=== PATIENT | female | born 2000 | race Caucasian/White ===

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

== ENCOUNTER 2021-03-09 17:52 | Emergency (ER) | payer MEDICAID ==
[~2021-03-09] VITALS: Ht 154.9 cm; Wt 68.0 kg
[~2021-03-09 17:52] MED LIST changes: +ONDA4TAB12 PO
[2021-03-09] MEDS ORDERED: PROCHLORPERAZINE 10 MG/2 ML VIAL. IV ONE (18:30)
[2021-03-09] MEDS ORDERED: KETOROLAC 15 MG/ML VIAL. IVP ONE (18:30)
[2021-03-09] MEDS ORDERED: DEXAMETHASONE 4 MG TABLET PO ONE (18:30)
[2021-03-09] MEDS ORDERED: ONDANSETRON PF 4 MG/2 ML VIAL. IVP ONE (18:30)
[2021-03-09] MEDS ORDERED: ACETAMINOPHEN 500 MG TABLET PO ONE (18:30)
[2021-03-09] MEDS ORDERED: diphenhydrAMINE 50 MG/ML VIAL IVP ONE (18:30)
[2021-03-09] MEDS ORDERED: IV RINGERS SOLUTION,LACTATED 1,000 ML IV ONE (18:30)
--- NOTE | 2021-03-09 18:38 | PHYS DOC ---
Past History Past Medical History: Anxiety, Depression, Other Additional Past Medical Histor: claustrophobia, seasonal allergies Past Surgical History: Other Additional Past Surgical Histo: lt knee--removed some "bad" tissue Smoking: Cigarettes Alcohol Use: Rarely Drug Use: None Adult General Chief Complaint Chief Complaint: HEADACHE HPI HPI Patient is a 20-year-old female with a past medical history significant for migraines, anxiety and depression who presents with a chief complaint of migraine. States over the past couple of days she has had a whole head, dull and aching migraine, 7 out of 10 with associated photophobia and nausea but no v omiting. States she gets several migraines a month and can usually handle it with ibuprofen and Excedrin. States she took these yesterday with only minimal response. Denies any recent travel, traumas, fevers, illnesses, known ill contacts, chest pain, shortness of breath, abdominal pain, dysuria, hematuria or blood in the stool. Denies any numbness/weakness/tingling. Denies any trouble ambulating. Review of Systems Review of Systems Review of systems otherwise unremarkable except noted in HPI Current Medications Current Medications Current Medications Medications (Trade) Dose Ordered Sig/Kirill Start Time Stop Time Status Last Admin Dose Admin Acetaminophen (Tylenol) 1,000 mg 1X ONCE 03/09/21 18:30 03/09/21 18:31 DC Dexamethasone (Decadron) 4 mg 1X ONCE 03/09/21 18:30 03/09/21 18:31 DC Diphenhydramine HCl (Benadryl) 25 mg 1X ONCE 03/09/21 18:30 03/09/21 18:31 DC Ketorolac Tromethamine (Toradol 15mg Vial) 15 mg 1X ONCE 03/09/21 18:30 03/09/21 18:31 DC Lactated Ringer's 1,000 ml @ 1,000 mls/hr 1X ONCE 03/09/21 18:30 03/09/21 19:29 03/09/21 18:27 1,000 MLS/HR Ondansetron HCl (Zofran) 4 mg 1X ONCE 03/09/21 18:30 03/09/21 18:31 DC Prochlorperazine Edisylate (Compazine) 10 mg 1X ONCE 03/09/21 18:30 03/09/21 18:31 DC Allergies Allergies Allergies Coded Allergies Type Severity Reaction Last Updated Verified Penicillins Allergy Unknown 05/28/20 Yes Physical Exam Physical Exam Constitutional: Well developed, well nourished, no acute distress, non-toxic appearance. [] HENT: Normocephalic, atraumatic, bilateral external ears normal, oropharynx moist, no oral exudates, nose normal. [] Eyes: PERRLA, EOMI, conjunctiva normal, no discharge. [] Neck: Normal range of motion, no tenderness, supple, no stridor. [] Cardiovascular:Heart rate regular rhythm, no murmur [] Lungs & Thorax: Bilateral breath sounds clear to auscultation [] Abdomen: soft, no tenderness, no masses, no pulsatile masses. [] Skin: Warm, dry, no erythema, no rash. [] Extremities: No tenderness, , ROM intact, Neurologic: Alert and oriented X 3, normal motor function, normal sensory function, cranial nerves intact, able to ambulate, no focal deficits noted. [] Psychologic: Affect normal, judgement normal, mood normal. [] Current Patient Data Vital Signs Vital Signs Date Time Temp Pulse Resp B/P (MAP) Pulse Ox O2 Delivery O2 Flow Rate FiO2 03/09/21 17:52 99.0 115 20 107/66 (80) 98 Room Air EKG EKG [] Radiology/Procedures Radiology/Procedures [] Heart Score C/O Chest Pain: No Risk Factors: Risk Factors: DM, Current or recent (<one month) smoker, HTN, HLP, family history of CAD, obesity. Risk Scores: Risk Factors: DM, Current or recent (<one month) smoker, HTN, HLP, family history of CAD, obesity. Course & Med Decision Making Course & Med Decision Making Patient is a 20-year-old female who presents to the emergency department for chief complaint of migraine Vital signs notable for tachycardia. Physical exam noted above. Patient given fluid and migraine cocktail. Patient stated that she is not , and does not need to take a test she would just like some medicine to get the feeling better. Advised that given doses of ibuprofen can have an adverse effect on if . States she takes ibuprofen all the time. On reassessment after migraine cocktail, patient was asleep. Let sleep for another 30 minutes or so. On further reassessment, patient woke up easily, and stated that her headache was resolved. States she felt better and was ready to be discharged home. Discussed migraine management at home. Advised to follow-up with primary care physician as soon as she can to set up a follow-up visit. Gave return precautions to the ED. Patient grateful, verbalized understanding and agreed with plan of discharge. [] Dragon Disclaimer Dragon Disclaimer This electronic medical record was generated, in whole or in part, using a voice recognition dictation system. Departure Departure: Impression: Primary Impression: Migraine Disposition: HOME / SELF CARE / HOMELESS Condition: GOOD Referrals: PCP,MIRIAN (PCP) ELIDA MALLORY MD Patient Instructions: Migraine Headache Additional Instructions: Please read all of the attached information carefully. As discussed you can use Tylenol, Excedrin and Benadryl at home for migraine control and use as discussed. Please do not exceed 3000 mg a day for Tylenol. You are given a local primary care physician #2 call on Thursday and establish care to discuss your ED visit and migraine management. Please come back to the ED immediately with new or concerning symptoms. ADEEL EPREYRA MD Mar 09, 2021 18:38
[2021-03-09 19:53] VITALS: BP 115/67
== END 2021-03-09 20:22 | disposition home or self-care (01) ==
LOC: ER 17:52
DX: G43.909 Migraine, unspecified, not intractable, without status migrainosus (principal); F17.210 Nicotine dependence, cigarettes, uncomplicated; Z88.0 Allergy status to penicillin
CPT/HCPCS: 96361; 96374; 96375; 99284; J0780; J1200; J1885; J2405; J7120; J8540

== ENCOUNTER 2021-07-25 08:36 | Emergency (ER) | payer MEDICAID ==
[~2021-07-25] VITALS: Ht 154.9 cm; Wt 68.9 kg
--- NOTE | 2021-07-25 09:09 | PHYS DOC ---
Past History Past Medical History: Anxiety, Depression, Other Additional Past Medical Histor: claustrophobia, seasonal allergies, GC/Chlamydia Past Surgical History: Other Additional Past Surgical Histo: lt knee--removed some "bad" tissue Smoking: Cigarettes Alcohol Use: Rarely Drug Use: None General Adult EDM: Chief Complaint: ABDOMINAL PAIN HPI: HPI: Patient is a 20-year-old female coming in for low abdominal pain that is worse in the left. Patient states that she was admitted to [facility] for 5 days for an infection in her fallopian tube. Patient was discharged with antibiotics and has been taking them and has 2 days left. Patient states she is continue to have a small amount of white discharge. Denies systemic complaints. Patient states that pain was present when she woke up this morning. Denies any intercourse since her previous admission. Review of Systems: Review of Systems: All other systems within normal limits except for as noted in the HPI Allergies: Allergies: Allergies Coded Allergies Type Severity Reaction Last Updated Verified Penicillins Allergy Unknown 07/25/21 Yes Physical Exam: PE: Constitutional: Well developed, well nourished, no acute distress, non-toxic appearance. [] HENT: Normocephalic, atraumatic, bilateral external ears normal, nose normal. [] Eyes: PERRLA, conjunctiva normal, no discharge. [] Neck: No rigidity, supple, no stridor. [] Cardiovascular: Regular rate and rhythm, brisk cap refill [] Lungs & Thorax: Non labored symmetric respirations, no tachypnea or respiratory distress [] Abdomen: Soft, nondistended, exquisitely tender to palpation with guarding. Negative Rovsing. Skin: Warm, dry, no erythema, no rash. [] Back: Unremarkable Extremities: No deformities, range of motion grossly intact, no lower extremity edema [] Neurologic: Alert and oriented X 3, no focal deficits noted. [] Psychologic: Affect normal, judgement normal, mood normal. [] Current Patient Data: Vital Signs: Vital Signs Date Time Temp Pulse Resp B/P (MAP) Pulse Ox O2 Delivery O2 Flow Rate FiO2 07/25/21 08:40 98.7 118 16 115/67 99 Room Air EKG: EKG: [] Radiology/Procedures: Radiology/Procedures: [address] [address] IMAGING REPORT Signed PATIENT: SARTHAK LUCIANO ACCOUNT: [id number] : 2000 LOCATION: ER AGE: 20 SEX: F EXAM STATUS: REG ER ORD. PHYSICIAN: PITER HEWITT MD REASON: left toa PROCEDURE: PELVIS COMPLETE US PELVIS COMPLETE Clinical Indication: Reason: left toa, abnormal CT. Comparison: CT abdomen and pelvis with contrast, earlier same day. TECHNIQUE: Real-time ultrasound imaging of the pelvis using transabdominal window is performed. Findings: Visualized urinary bladder is unremarkable. Uterus measures 10.1 x 5.1 x 4 cm. No focal abnormality. Endometrial stripe is normal measuring 12 mm. The right ovary is normal. There is a dilated tubular structure of the left adnexa containing heterogeneous internal echoes. This is inseparable from the left ovary. There appears to be normal venous flow in the left ovary. Measured in conglomerate these findings measure 5.3 x 3.1 x 3.2 cm. A significant cystic component is not identified. No pelvic free fluid is identified. IMPRESSION: There is a dilated tubular structure containing heterogeneous internal echoes of the left adnexa suggesting pyosalpinx which is inseparable from the left ovary. A significant cystic component is not identified. Findings suggest developing tubo-ovarian abscess. Electronically signed by: Jadiel Rodríguez MD (07/25/2021 11:53 AM) [id number] DICTATED AND SIGNED BY: JADIEL RODRÍGUEZ MD DATE: 07/25/21 1143 CC: PITER HEWITT MD; PCP,NO ~MTH0 0 [][address] [id number] IMAGING REPORT Signed PATIENT: SARTHAK LUCIANO ACCOUNT: [id number] : 2000 LOCATION: ER AGE: 20 SEX: F EXAM STATUS: REG ER ORD. PHYSICIAN: PITER HEWITT MD REASON: low abd pain- 75mls omni 300 PROCEDURE: CT ABD PELV W/ IV CONTRST ONLY INDICATION: Reason: low abd pain- 75mls omni 300 / Spl. Instructions: / History: COMPARISON: August 2017 TECHNIQUE: Axial CT images were obtained through the abdomen and pelvis with intravenous contrast. One or more of the following individualized dose reduction techniques were utilized for this examination: 1. Automated exposure control; 2. Adjustment of the mA and/or kV according to patient size; 3. Use of iterative reconstruction technique. FINDINGS: Vascular: No abdominal aortic aneurysm. Hepatobiliary: No intrahepatic biliary duct dilation. Pancreas: No peripancreatic edema. Spleen: Mildly prominent in size. Renal: There is a tubular structure in the left adnexa with irregular enhancing wall measuring approximately 40 x 12 mm. Bladder: No definite inflammatory changes to the bladder. Gastrointestinal: Moderate stool throughout the colon. The appendix measures up to about 6 to 7 mm without definite adjacent inflammatory changes. There is a couple of mildly prominent loops of small bowel identified measuring up to about 24 mm without high-grade transition point. IMPRESSION: * There is a couple of mildly prominent loops of small bowel without high- grade transition point to suggest obstruction. * The appendix is borderline in size but there is no definite adjacent inflammatory changes therefore this does not fulfill all of the CT criteria for appendicitis. * Within the left adnexa there is a tubular structure identified with enhancing peripherally and low density centrally. Could be secondary to a exophytic left ovarian lesion but another possible cause would include hydro or pyosalpinx. Would correlate with symptoms in the region and it may be helpful to obtain a pelvic ultrasound to further evaluate. * Moderate stool within the colon which can be seen with constipation. Electronically signed by: Sunday Alonso MD (07/25/2021 10:17 AM) [id number] DICTATED AND SIGNED BY: SUNDAY ALONSO MD DATE: 07/25/21 1007 CC: PITER HEWITT MD; PCP,NO ~MTH0 0 Heart Score: C/O Chest Pain: No Risk Factors: Risk Factors: DM, Current or recent (<one month) smoker, HTN, HLP, family history of CAD, obesity. Risk Scores: Score 0 - 3: 2.5% MACE over next 6 weeks - Discharge Home Score 4 - 6: 20.3% MACE over next 6 weeks - Admit for Clinical Observation Score 7 - 10: 72.7% MACE over next 6 weeks - Early Invasive Strategies Course & Med Decision Making: Course & Med Decision Making Or consistent with a tubo-ovarian abscess. Do not have OB at this facility, consulted [facility] but had difficulty getting the messages clotted over. Was finally able to speak with RUG DRYING MACHINE OPERATOR, Dr. Hernandez, who also was the physician who took care of her when she was inpatient. She initially stated they do not have room in the facility to accept her but recommended her to be inpatient on IV antibiotics for 48 hours with reassessment of whether she is doing better, if she is doing worse they would take to the OR to drain. States that the size of abscess is not necessarily mandate immediate drainage in the OR. Call back to follow-up on antibiotic regimen since patient states she might of had an anaphylactic reaction to penicillin in the past and normal treatments with cephalosporins, Dr. Hernandez decided she would go ahead and accept the patient and recommended usual antibiotic regimen including cephalosporins as she had tolerated them in the hospital. Dragon Disclaimer: Dragon Disclaimer: This electronic medical record was generated, in whole or in part, using a voice recognition dictation system. Departure Departure: Impression: Primary Impression: Tubo-ovarian abscess Disposition: 02 SHORT TERM HOSPITAL Condition: STABLE Referrals: PCP,NO (PCP) PITER HEWITT MD Jul 25, 2021 09:09
[2021-07-25] MEDS ORDERED: CONTRAST GIVEN. MC PRN (09:30)
[2021-07-25] MEDS: IOHEXOL 300 MG/ML 75 ML VIAL. IV ONE (09:51)
[2021-07-25 10:08] LABS: BASO % 0 % (0-3); EOS # 0.4 x10^3/uL (0.0-0.7); EOS % 4 % (0-3); HEMATOCRIT 38.5 % (36.0-47.0); LYMPH # 1.6 x10^3/uL (1.0-4.8); LYMPH % 17 % (24-48); MEAN CORPUSCULAR HEMOGLOBIN 31 pg (25-35); MEAN CORPUSCULAR HGB CONC 34 g/dL (31-37); MEAN CORPUSCULAR VOLUME 90 fL (79-100); MONO # 0.6 x10^3/uL (0.0-1.1); MONO % 6 % (0-9); NEUT % 73 % (31-73); PLATELET COUNT 224 x10^3/uL (140-400); RED BLOOD COUNT 4.27 x10^6/uL (3.50-5.40); RED CELL DISTRIBUTION WIDTH 14.1 % (11.5-14.5); WHITE BLOOD COUNT 9.6 x10^3/uL (4.0-11.0)
--- NOTE | 2021-07-25 10:19 | RAD ---
INDICATION: Reason: low abd pain- 75mls omni 300 / Spl. Instructions: / History: COMPARISON: August 2017 TECHNIQUE: Axial CT images were obtained through the abdomen and pelvis with intravenous contrast. One or more of the following individualized dose reduction techniques were utilized for this examinat ion: 1. Automated exposure control; 2. Adjustment of the mA and/or kV according to patient size; 3 . Use of iterative reconstruction technique. FINDINGS: Vascular: No abdominal aortic aneurysm. Hepatobiliary: No intrahepatic biliary duct dilation. Pancreas: No peripancreatic edema. Spleen: Mildly prominent in size. Renal: There is a tubular structure in the left adnexa with irregular enhancing wall measuring approx imately 40 x 12 mm. Bladder: No definite inflammatory changes to the bladder. Gastrointestinal: Moderate stool throughout the colon. The appendix measures up to about 6 to 7 mm wi thout definite adjacent inflammatory changes. There is a couple of mildly prominent loops of small bowel identified measuring up to about 24 mm wit hout high-grade transition point. IMPRESSION: * There is a couple of mildly prominent loops of small bowel without high-grade transition point to suggest obstruction. * The appendix is borderline in size but there is no definite adjacent inflammatory changes therefor e this does not fulfill all of the CT criteria for appendicitis. * Within the left adnexa there is a tubular structure identified with enhancing peripherally and low density centrally. Could be secondary to a exophytic left ovarian lesion but another possible cause would include hydro or pyosalpinx. Would correlate with symptoms in the region and it may be helpful to obtain a pelvic ultrasound to further evaluate. * Moderate stool within the colon which can be seen with constipation. Electronically signed by: Javed Alonso MD (07/25/2021 10:17 AM) [id number]
[2021-07-25 10:21] LABS: CREATININE 0.6 mg/dL (0.6-1.0); GFR 128.8; POTASSIUM 4.4 mmol/L (3.5-5.1)
[2021-07-25 10:27] LABS: ALBUMIN 3.9 g/dL (3.4-5.0); ALBUMIN/GLOBULIN RATIO 1.3 (1.0-1.7); TOTAL BILIRUBIN 0.8 mg/dL (0.2-1.0); TOTAL PROTEIN 6.9 g/dL (6.4-8.2)
[2021-07-25 10:33] LABS: AMORPHOUS SEDIMENT,UR PRESENT /HPF; BACTERIA,URINE 0 /HPF (0-FEW); BILIRUBIN,URINE NEG (NEG); CLARITY,URINE HAZY; COLOR,URINE YELLOW; GLUCOSE,URINE NEG (NEG); NITRITE,URINE NEG (NEG); RBC,URINE OCC /HPF (0-2); SQUAMOUS EPITHELIAL CELL,UR MANY /LPF; UROBILINOGEN,URINE 0.2 mg/dL (0.2 mg/dL)
--- NOTE | 2021-07-25 11:56 | RAD ---
US PELVIS COMPLETE Clinical Indication: Reason: left toa, abnormal CT. Comparison: CT abdomen and pelvis with contrast, earlier same day. TECHNIQUE: Real-time ultrasound imaging of the pelvis using transabdominal window is performed. Findings: Visualized urinary bladder is unremarkable. Uterus measures 10.1 x 5.1 x 4 cm. No focal abnormality. Endometrial stripe is normal measuring 12 mm . The right ovary is normal. There is a dilated tubular structure of the left adnexa containing heterogeneous internal echoes. Thi s is inseparable from the left ovary. There appears to be normal venous flow in the left ovary. Measu red in conglomerate these findings measure 5.3 x 3.1 x 3.2 cm. A significant cystic component is not identified. No pelvic free fluid is identified. IMPRESSION: There is a dilated tubular structure containing heterogeneous internal echoes of the left adnexa sugg esting pyosalpinx which is inseparable from the left ovary. A significant cystic component is not za ntified. Findings suggest developing tubo-ovarian abscess. Electronically signed by: Jadiel Rodríguez MD (07/25/2021 11:53 AM) [id number]
[2021-07-25] MEDS: KETOROLAC 15 MG/ML VIAL. IVP ONE (15:11)
[2021-07-25] MEDS ORDERED: IV DEXTROSE 5% 100 ML IV ONE (17:13)
[2021-07-25] MEDS ORDERED: DOXYCYCLINE HYCLATE 100 MG VIAL IV ONE (17:14)
[2021-07-25] MEDS: DOXYCYCLINE HYCLATE 100 MG in IV DEXTROSE 5% 100 ML IV ONE (17:55)
[2021-07-25 17:59] VITALS: BP 109/57
[2021-07-26 20:07] LABS: CHLAMYDIA PROBE Negative (Negative)
== END 2021-07-25 18:23 | disposition short-term general hospital (02) ==
LOC: ER 08:36
DX: N70.93 Salpingitis and oophoritis, unspecified (principal); F17.210 Nicotine dependence, cigarettes, uncomplicated; Z88.0 Allergy status to penicillin
CPT/HCPCS: 74177; 76856; 80053; 81001; 81025; 83690; 85025; 87086; 87491; 87591; 96365; 96368; 96375; 99285; J0694; J1885; J3490; Q0111; Q9967

== ENCOUNTER 2021-08-10 18:52 | Emergency (ER) | payer MEDICAID ==
[~2021-08-10] VITALS: Ht 152.4 cm; Wt 80.9 kg
--- NOTE | 2021-08-10 19:10 | PHYS DOC ---
Past History Past Medical History: Anxiety, Depression, Other Additional Past Medical Histor: claustrophobia, seasonal allergies, GC/Chlamydia Past Surgical History: Other Additional Past Surgical Histo: lt knee--removed some "bad" tissue Smoking: Cigarettes Alcohol Use: Rarely Drug Use: None General Adult HPI: HPI: ".. I am having some fever.. like feelings.. I was recently discharged from . For infection in my fallopian tubes.they said I should come in and get checked out.." Patient is a 20 year old female who presents with above hx and complaints fever , reported infection fallopian tubes. Has been followed for this complaint at . Patient has been compliant of her oral meds since discharge. Patient reportedly had positive check for bacterial vaginosis on 07/25/21. Patient has no paperwork with her or her discharge instructions from . Patient does not know the antibiotic she is on currently. Patient has history of anxiety, depression, ADHD, tobacco use, marijuana use, previous STDs at , chlamydia ,bacterial vaginosis and previous . Patient has followed with various doctors including Dr. Mendoza, doctors at [facility]-she does not remember their names, and is currently following with doctors at . The last doctor seen was at - Dr. Engel. Patient on presentation to the ED does have a temp of 99.3. But remainder of her vitals are relatively stable. Currently unable to get records from . Patient denies any recent travel. No specific ill contacts. No history immunosuppression. Review of Systems: Review of Systems: Constitutional: Complains of fever Eyes: Denies change in visual acuity HENT: Denies nasal congestion or sore throat Respiratory: Denies cough or shortness of breath Cardiovascular: Denies chest pain or edema GI: Denies abdominal pain, nausea, vomiting, bloody stools or diarrhea (no complaints of recent pain but does have history of pelvic pain from recent tubular infection) : Denies dysuria Musculoskeletal: Denies back pain or joint pain Integument: Denies rash Neurologic: Denies headache, focal weakness or sensory changes Endocrine: Denies polyuria or polydipsia Lymphatic: Denies swollen glands Psychiatric: Denies depression or anxiety Family History: Family History: Noncontributory to presentation Current Medications: Current Meds: See nursing for home meds Allergies: Allergies: Allergies Coded Allergies Type Severity Reaction Last Updated Verified Penicillins Allergy Unknown 07/25/21 Yes Physical Exam: PE: Constitutional: Well developed, well nourished, no acute distress, non-toxic appearance. [] HENT: Normocephalic, atraumatic, bilateral external ears normal, oropharynx moist, no oral exudates, nose normal. [] Eyes: PERRLA, EOMI, conjunctiva normal, no discharge. [] Neck: Normal range of motion, no tenderness, supple, no stridor. [] Cardiovascular:Heart rate regular rhythm, no murmur [] Lungs & Thorax: Bilateral breath sounds clear to auscultation [] Abdomen: Bowel sounds normal, soft, very mild abdomen tenderness, no masses, no pulsatile masses. No true rebound sign. Patient defers pelvic exam at this time . Patient is distended. Skin: Warm, dry, no erythema, no rash. [] Back: No tenderness, no CVA tenderness. [] Extremities: No tenderness, no cyanosis, no clubbing, ROM intact, no edema. No psoas sign Neurologic: Alert and oriented X 3, normal motor function, normal sensory f unction, no focal deficits noted. [] Psychologic: Affect normal, judgement normal, mood normal. [] Current Patient Data: Labs: Note it has been more than 3 days and labs have not crossed over-my review of significant labs normal CBC normal electrolytes. Covid negative. EKG: EKG: [] Radiology/Procedures: Radiology/Procedures: [place] [address] IMAGING REPORT Signed PATIENT: SARTHAK LUCIANO ACCOUNT: [id number] : 2000 LOCATION: ER AGE: 20 SEX: F EXAM STATUS: REG ER ORD. PHYSICIAN: ALYSSA BEAVERS MD REASON: pain, hx ovarian abscess, fever, OMNI 300, 75ml & OMNI 240, 30ml PROCEDURE: CT ABD PELV W/ORAL&IV CONTRAST EXAM: CT Abdomen and Pelvis with IV contrast CLINICAL HISTORY: Reason: pain, hx ovarian abscess, fever, OMNI 300, 75ml OMNI 240, 30ml / Spl. Instructions: / History: . COMPARISON: none TECHNIQUE: Helical CT of the abdomen and pelvis was performed following the administration of intravenous contrast. Axial, coronal and sagittal reformatted images were generated. PQRS compliance statement - One or more of the following individualized dose reduction techniques were utilized for this study: 1. Automated exposure control 2. Adjustment of the mA and/or kV according to patient size 3. Use of iterative reconstruction technique FINDINGS: Lower Chest: Lung bases are clear. Abdomen and Pelvis: Liver, spleen, adrenal glands and pancreas are unremarkable. Gallbladder is contracted. No biliary duct dilatation. Symmetric nephrograms. No focal renal lesion. No hydronephrosis or hydroureter. Bladder is unremarkable Appendix is normal. Moderate colonic stool content is seen. No small or large bowel dilatation. No bowel obstruction. Endometrial prominence fluid with phase of menstrual cycle. Previously seen tubular structure in the left adnexa is not definitively seen on today's examination. No abdominal or pelvic ascites. No abdominal or pelvic lymphadenopathy. Bones: No aggressive osseous lesion is seen. IMPRESSION: Previously seen tubular structure in the left index is not definitively seen on this examination. No loculated abdominal or pelvic collection is seen. Endometrial prominence can be correlated with phase of menstrual cycle. No bowel obstruction. Electronically signed by: Eliseo Feliz MD (08/10/2021 11:42 PM) [facility] DICTATED AND SIGNED BY: ELISEO FELIZ MD DATE: 08/10/212337 CC: ALYSSA BEAVERS MD; NON,STAFF ~[facility]0 0 [][place] [address] IMAGING REPORT Signed PATIENT: SARTHAK LUCIANO ACCOUNT: [id number] : 2000 LOCATION: ER AGE: 20 SEX: F EXAM STATUS: REG ER ORD. PHYSICIAN: ALYSSA BEAVERS MD REASON: pain, hx ovarian abscess, fever PROCEDURE: ACUTE ABDOMEN SERIES Exam: Acute abdominal series INDICATION: Pain TECHNIQUE: Frontal view of chest with upright and supine views of the abdomen Comparisons: None FINDINGS: The cardiomediastinal silhouette and pulmonary vessels are within normal limits. The lung and pleural spaces are clear. Air and stool are noted throughout the colon to level the rectum nonobstructive bowel gas pattern. No suspicious masses or calcifications. Visualized osseous structures are unremarkable. IMPRESSION: 1. No acute cardiopulmonary process. 2. Nonobstructive bowel gas pattern. Electronically signed by: Mason Faria MD (08/10/2021 10:47 PM) [facility] DICTATED AND SIGNED BY: MASON FARIA MD DATE: 08/10/212245 CC: ALYSSA BEAVERS MD; NON,STAFF ~MTH0 0 Heart Score: C/O Chest Pain: N/A Risk Factors: Risk Factors: DM, Current or recent (<one month) smoker, HTN, HLP, family history of CAD, obesity. Risk Scores: Score 0 - 3: 2.5% MACE over next 6 weeks - Discharge Home Score 4 - 6: 20.3% MACE over next 6 weeks - Admit for Clinical Observation Score 7 - 10: 72.7% MACE over next 6 weeks - Early Invasive Strategies Course & Med Decision Making: Course & Med Decision Making Pertinent Labs and Imaging studies reviewed. (See chart for details) Patient's labs appear to be stable. Cultures collected. Patient to call [facility] in the morning for possible earlier follow-up. Patient did receive Rocephin here and Flagyl IV. Patient take Tylenol and ibuprofen for pain. Recommend patient stay on a clear fluid diet x 48 hrs. . No solids or milk products. Allow bowel rest. Push fluids. Patient return if any concerns. Patient is to continue take meds given her [facility]. For her infection. Advised patient to have her doctor follow-up cultures have been collected here and reviewed the labs we have collected here. Encourage patient to have continuity of care with her doctors and / or bring with her records, discharge notes ect. if she goes to a different doctor. The associated medical information from previous hospital or clinic visit could shorten her evaluation.. Patient return if any concerns. Advised it this developed into a surgical problem, we do not have MANUFACTURER'S REPRESENTATIVE/ or General Surgery here in our hospital. Did send the CT tonight to for her doctors there to compare in the AM. The adnexal structure seen on previous exam appears to have resolved. No adenopathy. No free fluid. Feel currently patient is relatively stable and will be able to follow-up safely with [facility] in the morning. Impression: 1. History of fever 2. History of fallopian tube infection 3. Tobacco and marijuana use 4. Constipation [] Dragqueenie Disclaimer: Karen Disclaimer: This electronic medical record was generated, in whole or in part, using a voice recognition dictation system. Departure Departure: Referrals: NON,STAFF (PCP) Scripts Hydrocodone/Ibuprofen (HYDROCODONE-IBUPROFEN 7.5-200 ) 1 Each Tablet 1 TAB PO PRN Q6HRS PRN for PAIN, #30 TAB 0 Refills Prov: ALYSSA BEAVERS MD 08/11/21 Dragon Disclaimer This chart was dictated in whole or in part using Voice Recognition software in a busy, high-work load, and often noisy Emergency Department environment. It may contain unintended and wholly unrecognized errors or omissions. Dragon Disclaimer This chart was dictated in whole or in part using Voice Recognition software in a busy, high-work load, and often noisy Emergency Department environment. It may contain unintended and wholly unrecognized errors or omissions. ALYSSA BEAVERS MD Aug 10, 2021 19:09
[2021-08-10] MEDS ORDERED: FAMOTIDINE 20 MG/2 ML VIAL IVP ONE (20:00)
[2021-08-10] MEDS ORDERED: VANCOMYCIN 1 GM in IV NORMAL SALINE 250ML 250 ML IV ONE (20:00)
[2021-08-10] MEDS ORDERED: ONDANSETRON PF 4 MG/2 ML VIAL. IVP ONE (20:00)
[2021-08-10] MEDS ORDERED: IV RINGERS SOLUTION,LACTATED 1,000 ML IV SCH (20:00)
[2021-08-10] MEDS ORDERED: CONTRAST GIVEN. MC PRN (20:15)
[2021-08-10] MEDS ORDERED: IOHEXOL 300 MG/ML 75 ML VIAL. IV ONE (20:15)
[2021-08-10] MEDS ORDERED: IOHEXOL 240 MG/ML 50ML VIAL. PO ONE (20:15)
[2021-08-10 20:21] LABS: AMPHETAMINE/METHAMPHETAMINE NEG (NEG); BARBITURATES NEG (NEG); BENZODIAZEPINES NEG (NEG); CANNABINOIDS POS (NEG); COCAINE NEG (NEG); METHADONE NEG (NEG); OPIATES NEG (NEG); PHENCYCLIDINE NEG (NEG)
[2021-08-10] MEDS ORDERED: VANCOMYCIN 2 GM in IV NORMAL SALINE 500ML 500 ML IV ONE (20:30)
[2021-08-10] MEDS ORDERED: IV NORMAL SALINE 500ML 500 ML ONE (20:31)
[2021-08-10] MEDS ORDERED: VANCOMYCIN 1 GM VIAL. ONE (20:31)
[2021-08-10 20:32] LABS: BACTERIA,URINE FEW /HPF (0-FEW); BILIRUBIN,URINE NEG (NEG); CLARITY,URINE HAZY; COLOR,URINE YELLOW; GLUCOSE,URINE NEG (NEG); NITRITE,URINE NEG (NEG); SQUAMOUS EPITHELIAL CELL,UR MOD /LPF; UROBILINOGEN,URINE 0.2 mg/dL (0.2 mg/dL)
[2021-08-10 21:03] LABS: BASO % 0 % (0-3); EOS # 0.1 x10^3/uL (0.0-0.7); EOS % 2 % (0-3); HEMATOCRIT 41.6 % (36.0-47.0); HEMOGLOBIN 13.9 g/dL (12.0-15.5); LYMPH # 2.6 x10^3/uL (1.0-4.8); LYMPH % 41 % (24-48); MEAN CORPUSCULAR HEMOGLOBIN 31 pg (25-35); MEAN CORPUSCULAR HGB CONC 34 g/dL (31-37); MEAN CORPUSCULAR VOLUME 91 fL (79-100); MONO # 0.4 x10^3/uL (0.0-1.1); MONO % 7 % (0-9); NEUT # 3.3 x10^3uL (1.8-7.7); NEUT % 51 % (31-73); PLATELET COUNT 314 x10^3/uL (140-400); RED BLOOD COUNT 4.57 x10^6/uL (3.50-5.40); RED CELL DISTRIBUTION WIDTH 13.9 % (11.5-14.5); WHITE BLOOD COUNT 6.5 x10^3/uL (4.0-11.0)
[2021-08-10 21:10] LABS: CALCIUM 9.4 mg/dL (8.5-10.1); CREATININE 0.7 mg/dL (0.6-1.0); GFR 107.8; POTASSIUM 3.6 mmol/L (3.5-5.1)
[2021-08-10 21:16] LABS: ALBUMIN 4.4 g/dL (3.4-5.0); DIRECT BILIRUBIN 0.1 mg/dL (0.0-0.2); TOTAL BILIRUBIN 0.7 mg/dL (0.2-1.0); TOTAL PROTEIN 8.3 g/dL (6.4-8.2)
[2021-08-10 21:44] LABS: U PREG PATIENT NEGATIVE (NEG)
[2021-08-10 22:12] LABS: INFLUENZA A PATIENT NEGATIVE (NEGATIVE); INFLUENZA B PATIENT NEGATIVE (NEGATIVE)
--- NOTE | 2021-08-10 22:49 | RAD ---
Exam: Acute abdominal series INDICATION: Pain TECHNIQUE: Frontal view of chest with upright and supine views of the abdomen Comparisons: None FINDINGS: The cardiomediastinal silhouette and pulmonary vessels are within normal limits. The lung and pleural spaces are clear. Air and stool are noted throughout the colon to level the rectum nonobstructive bowel gas pattern. No suspicious masses or calcifications. Visualized osseous structures are unremarkable. IMPRESSION: 1. No acute cardiopulmonary process. 2. Nonobstructive bowel gas pattern. Electronically signed by: Mason Jacobo MD (08/10/2021 10:47 PM) [facility]
[2021-08-10] MEDS ORDERED: KETOROLAC 30 MG/ML VIAL. ONE (22:52)
[2021-08-10] MEDS ORDERED: KETOROLAC 30 MG/ML VIAL. IVP ONE (23:30)
--- NOTE | 2021-08-10 23:44 | RAD ---
EXAM: CT Abdomen and Pelvis with IV contrast CLINICAL HISTORY: Reason: pain, hx ovarian abscess, fever, OMNI 300, 75ml OMNI 240, 30ml / Spl. Ins tructions: / History: . COMPARISON: none TECHNIQUE: Helical CT of the abdomen and pelvis was performed following the administration of intrave nous contrast. Axial, coronal and sagittal reformatted images were generated. PQRS compliance statement - One or more of the following individualized dose reduction techniques wer e utilized for this study: 1. Automated exposure control 2. Adjustment of the mA and/or kV according to patient size 3. Use of iterative reconstruction technique FINDINGS: Lower Chest: Lung bases are clear. Abdomen and Pelvis: Liver, spleen, adrenal glands and pancreas are unremarkable. Gallbladder is contracted. No biliary du ct dilatation. Symmetric nephrograms. No focal renal lesion. No hydronephrosis or hydroureter. Bladde r is unremarkable Appendix is normal. Moderate colonic stool content is seen. No small or large bowel dilatation. No rainer wel obstruction. Endometrial prominence fluid with phase of menstrual cycle. Previously seen tubular structure in the left adnexa is not definitively seen on today's examination. No abdominal or pelvic ascites. No abdominal or pelvic lymphadenopathy. Bones: No aggressive osseous lesion is seen. IMPRESSION: Previously seen tubular structure in the left index is not definitively seen on this examination. No loculated abdominal or pelvic collection is seen. Endometrial prominence can be correlated with phase of menstrual cycle. No bowel obstruction. Electronically signed by: Eliseo Rios MD (08/10/2021 11:42 PM) [facility]
[2021-08-11 00:40] VITALS: BP 116/77
[2021-08-11] MEDS ORDERED: MORPHINE SULFATE 10 MG/ML SYRINGE. SQ ONE (01:00)
[2021-08-11] MEDS ORDERED: HYDR-1179 PO (01:22)
--- NOTE | 2021-08-12 09:26 | NUR ---
IP: Attempted to notify patient of negative COVID19 test result. Unable to leave voicemail message as voicemail box is not setup yet.
--- NOTE | 2021-08-12 16:32 | NUR ---
IP: Second attempt to notify patient of negative COVID19 test results. No answer and unable to leave a message.
--- NOTE | 2021-08-13 12:57 | NUR ---
IP: Patient notified of negative COVID19 test result. Verbalized understanding.
== END 2021-08-11 01:25 | disposition home or self-care (01) ==
LOC: ER 18:52
DX: K59.00 Constipation, unspecified (principal); F17.210 Nicotine dependence, cigarettes, uncomplicated; R10.9 Unspecified abdominal pain; F12.90 Cannabis use, unspecified, uncomplicated; Z20.822 Contact with and (suspected) exposure to COVID-19; Z88.0 Allergy status to penicillin
CPT/HCPCS: 36415; 74022; 74177; 80048; 80076; 80307; 81001; 81025; 82150; 83690; 85025; 87040; 87086; 87804; 96365; 96366; 96368; 96372; 96375; 99285; C9803; J1885; J2270; J2405; J3370; J3490; J7040; J7120; Q9966; Q9967; U0003

== ENCOUNTER 2021-08-26 14:03 | Emergency (ER) | payer MEDICAID ==
[~2021-08-26] VITALS: Ht 152.4 cm; Wt 70.6 kg
[~2021-08-26 14:03] MED LIST changes: +HYDR-1179 PO
[2021-08-26 14:50] VITALS: BP 96/56
[2021-08-26] MEDS ORDERED: IBUPROFEN 400 MG TABLET. PO ONE (15:00)
--- NOTE | 2021-08-26 15:12 | RAD ---
XR HAND_RIGHT 3 VIEWS, XR RT WRIST 3VIEWS History: Pain after lifting vacuum today. Comparison: None. Technique: 3 views the right hand. 3 views the right wrist. Findings: Osseous mineralization is normal. No fracture or dislocaton. No significant degenerative changes. Sof t tissues are unremarkable. Impression: 1. Unremarkable right hand and wrist. Electronically signed by: Toni Pascal MD (08/26/2021 3:10 PM) [id number]
[2021-08-26] MEDS ORDERED: traMADol 50 MG TABLET PO ONE (15:15)
--- NOTE | 2021-08-26 15:33 | PHYS DOC ---
Past History Past Medical History: Anxiety, Depression, Other Additional Past Medical Histor: claustrophobia, seasonal allergies, GC/Chlamydia Past Surgical History: Other Additional Past Surgical Histo: knee surgery Smoking: Cigarettes Alcohol Use: None Drug Use: None General Adult EDM: Chief Complaint: WRIST PAIN HPI: HPI: Patient is a 20 year old female who presents with right wrist pain. Patient states she was priorly diagnosed with a cyst in her wrist, which has caused her chronic pain. However, she states at work today she lifted up a heavy vacuum and heard a pop, which worsened her pain. She reports she took ibuprofen immediately after. Patient denies weakness, decreased sensation and any other trauma/pain. Patient has no other complaints at this time. Review of Systems: Review of Systems: ROS negative except as mentioned in HPI. Current Medications: Current Meds: Current Medications Medications (Trade) Dose Ordered Sig/Kirill Start Time Stop Time Status Last Admin Dose Admin Ibuprofen (Motrin) 800 mg 1X ONCE 08/26/21 15:00 08/26/21 15:03 DC Tramadol HCl (Ultram) 50 mg 1X ONCE 08/26/21 15:15 08/26/21 15:16 DC 08/26/21 15:21 50 MG Allergies: Allergies: Allergies Coded Allergies Type Severity Reaction Last Updated Verified Penicillins Allergy Unknown 07/25/21 Yes Physical Exam: PE: Constitutional: Well developed, well nourished, no acute distress, non-toxic appearance. Cardiovascular: Heart rate regular rhythm, no murmur. Lungs & Thorax: Bilateral breath sounds clear to auscultation. Extremities: Right wrist tender on dorsal lateral aspect, pain, pain with medial flexion and dorsiflexion, range of motion intact. Extremities otherwise no tenderness, no cyanosis, no clubbing, ROM intact, no edema. Neurovascular intact in extremities x4. Current Patient Data: Vital Signs: Vital Signs Date Time Temp Pulse Resp B/P (MAP) Pulse Ox O2 Delivery O2 Flow Rate FiO2 08/26/21 15:21 20 Radiology/Procedures: Radiology/Procedures: PROCEDURE: WRIST 3V RIGHT XR HAND_RIGHT 3 VIEWS, XR RT WRIST 3VIEWS History: Pain after lifting vacuum today. Comparison: None. Technique: 3 views the right hand. 3 views the right wrist. Findings: Osseous mineralization is normal. No fracture or dislocaton. No significant degenerative changes. Soft tissues are unremarkable. Impression: 1. Unremarkable right hand and wrist. Electronically signed by: Toni Pascal MD (08/26/2021 3:10 PM) [id number] PROCEDURE: HAND RIGHT 3V XR HAND_RIGHT 3 VIEWS, XR RT WRIST 3VIEWS History: Pain after lifting vacuum today. Comparison: None. Technique: 3 views the right hand. 3 views the right wrist. Findings: Osseous mineralization is normal. No fracture or dislocaton. No significant degenerative changes. Soft tissues are unremarkable. Impression: 1. Unremarkable right hand and wrist. Electronically signed by: Toni Pascal MD (08/26/2021 3:10 PM) [id number] Heart Score: C/O Chest Pain: No Course & Med Decision Making: Course & Med Decision Making Pertinent Labs and Imaging studies reviewed. (See chart for details) Patient has known cyst in her wrist with chronic pain. Acute fracture and di slocation will be evaluated today with x-ray. She is instructed to follow-up with her primary care and/or orthopedists for further evaluation or pain management. Patient understands and is agreeable to discharge plan. EatWith Disclaimer: EatWith Disclaimer: This electronic medical record was generated, in whole or in part, using a voice recognition dictation system. Departure Departure: Impression: Primary Impression: Right wrist sprain Qualified Codes: S63.501A - Unspecified sprain of right wrist, initial en counter Disposition: HOME / SELF CARE / HOMELESS Condition: STABLE Referrals: NON,STAFF (PCP) ALYSSA REGALADO MD Patient Instructions: RICE - Routine Care for Injuries, [id number] Additional Instructions: Your x-rays today did not show any dislocation or fracture in your right hand or wrist. As discussed, x-ray imaging is limited and the fact that it cannot evaluate soft tissue injury. Follow the rice instructions provided to you today, and if your symptoms do not improve please follow-up with [facility] orthopedics. Their phone number and contact information is provided. Please return to the emergency department if your pain worsens or you develop signs of compartment syndrome (cool/pale skin, lack of pulses, numbness and tingling). ROHIT SANTOYO Aug 26, 2021 15:33
== END 2021-08-26 15:41 | disposition home or self-care (01) ==
LOC: ER 14:03
DX: S63.501A Unspecified sprain of right wrist, initial encounter (principal); F17.210 Nicotine dependence, cigarettes, uncomplicated; Z88.0 Allergy status to penicillin; X50.9XXA Other and unspecified overexertion or strenuous movements or postures, initial encounter; Y93.89 Activity, other specified; Y92.89 Other specified places as the place of occurrence of the external cause; Y99.8 Other external cause status
CPT/HCPCS: 73110; 73130; 99284

== ENCOUNTER 2021-09-08 03:20 | Emergency (ER) | payer MEDICAID ==
[~2021-09-08] VITALS: Ht 154.9 cm; Wt 67.4 kg
[~2021-09-08 03:20] MED LIST changes: -CYCL-331 PO; +CYCL10TA19 PO
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
--- NOTE | 2021-09-08 03:37 | EKG ---
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
[2021-09-08] MEDS ORDERED: IV RINGERS SOLUTION,LACTATED 1,000 ML IV SCH (04:00)
[2021-09-08 04:05] LABS: BASO % 0 % (0-3); EOS # 0.1 x10^3/uL (0.0-0.7); EOS % 1 % (0-3); HEMATOCRIT 42.7 % (36.0-47.0); HEMOGLOBIN 14.5 g/dL (12.0-15.5); LYMPH % 35 % (24-48); MEAN CORPUSCULAR HEMOGLOBIN 31 pg (25-35); MEAN CORPUSCULAR HGB CONC 34 g/dL (31-37); MEAN CORPUSCULAR VOLUME 91 fL (79-100); MONO # 0.3 x10^3/uL (0.0-1.1); MONO % 5 % (0-9); NEUT # 3.4 x10^3uL (1.8-7.7); NEUT % 59 % (31-73); PLATELET COUNT 239 x10^3/uL (140-400); RED CELL DISTRIBUTION WIDTH 13.3 % (11.5-14.5); WHITE BLOOD COUNT 5.8 x10^3/uL (4.0-11.0)
[2021-09-08 04:07] LABS: BGAS PH 7.41 (7.35-7.45)
[2021-09-08 04:16] LABS: BACTERIA,URINE 0 /HPF (0-FEW); BILIRUBIN,URINE NEG (NEG); CLARITY,URINE HAZY; COLOR,URINE YELLOW; GLUCOSE,URINE NEG (NEG); NITRITE,URINE NEG (NEG); RBC,URINE 0 /HPF (0-2); SQUAMOUS EPITHELIAL CELL,UR OCC /LPF; UROBILINOGEN,URINE 0.2 mg/dL (0.2 mg/dL); WBC,URINE OCC /HPF (0-4)
[2021-09-08 04:28] LABS: CALCIUM 9.1 mg/dL (8.5-10.1); CREATININE 0.7 mg/dL (0.6-1.0); GFR 107.8; POTASSIUM 3.2 mmol/L (3.5-5.1)
[2021-09-08 04:29] LABS: AMPHETAMINE/METHAMPHETAMINE NEG (NEG); BARBITURATES NEG (NEG); BENZODIAZEPINES POS (NEG); CANNABINOIDS POS (NEG); COCAINE NEG (NEG); METHADONE NEG (NEG); OPIATES NEG (NEG); PHENCYCLIDINE NEG (NEG)
[2021-09-08 04:43] LABS: ALBUMIN 4.3 g/dL (3.4-5.0); DIRECT BILIRUBIN 0.1 mg/dL (0.0-0.2); MAGNESIUM 2.1 mg/dL (1.8-2.4); TOTAL BILIRUBIN 0.8 mg/dL (0.2-1.0); TOTAL PROTEIN 8.1 g/dL (6.4-8.2)
[2021-09-08] MEDS ORDERED: MAGNESIUM HYDROXIDE 2,400 MG/30 ML ORAL.SUSP. PO ONE (05:00)
[2021-09-08 05:07] LABS: ACETAMIN < 2.0 mcg/mL (10-30); ETHANOL 136 mg/dL (0-10); SALIC < 2.8 mg/dL (2.8-20.0)
--- NOTE | 2021-09-08 05:16 | RAD ---
EXAM: CHEST 1 VIEW History: Overdose COMPARISON: None available. TECHNIQUE: Single portable radiograph of the chest FINDINGS: The cardiac silhouette is unremarkable. The lungs are clear bilaterally. The costophrenic sulci are clear and well demarcated. IMPRESSION: No radiographic evidence of an acute cardiopulmonary process. Electronically signed by: Michele Lozoya MD (09/08/2021 5:14 AM) [id number]
[2021-09-08] MEDS ORDERED: POTASSIUM CHLORIDE 20 MEQ TABLET.ER. PO ONE (05:30)
[2021-09-08 07:07] VITALS: BP 108/72
== END 2021-09-08 07:33 | disposition home or self-care (01) ==
LOC: ER 03:20
DX: T42.4X2A Poisoning by benzodiazepines, intentional self-harm, initial encounter (principal); F19.10 Other psychoactive substance abuse, uncomplicated; F41.9 Anxiety disorder, unspecified; F32.9 Major depressive disorder, single episode, unspecified; F17.210 Nicotine dependence, cigarettes, uncomplicated; Z88.0 Allergy status to penicillin; Y92.89 Other specified places as the place of occurrence of the external cause
CPT/HCPCS: 71045; 80048; 80076; 80307; 80329; 81001; 82550; 82803; 83690; 83735; 83880; 84443; 84484; 84702; 85025; 85610; 85730; 86592; 87491; 87591; 93005; 96360; 96361; 99285; G0480; J7120; 36415

== ENCOUNTER 2021-09-24 10:17 | Emergency (ER) | payer MEDICAID ==
[~2021-09-24] VITALS: Ht 154.9 cm; Wt 67.4 kg
[2021-09-24] MEDS ORDERED: MORPHINE SULFATE 4 MG/ML DISP.SYRIN. IM ONE (11:45)
[2021-09-24] MEDS ORDERED: IV NORMAL SALINE 1,000ML 1,000 ML IV ONE (11:45)
--- NOTE | 2021-09-24 12:11 | RAD ---
US PELVIS COMPLETE History: Reason: suprapubic pain / Spl. Instructions: / History: Comparison: July 25, 2021 Technique: Grayscale and color Doppler imaging of the pelvis was performed using transabdominal techn ique. Patient denies transvaginal ultrasound. Findings: The uterus measures 7.2 x 4.5 x 3.7 cm. Uterus has an unremarkable appearance. The endometrial stri pe measures 7 mm. Bilateral ovaries not identified due to positioning and overlying structures. IMPRESSION: 1. No acute pelvic pathology identified on transabdominal pelvic ultrasound. 2. Bilateral ovaries not identified. Electronically signed by: Andrez Barrientos DO (09/24/2021 12:08 PM) [id number]
[2021-09-24] MEDS ORDERED: IOHEXOL 300 MG/ML 75 ML VIAL. IV ONE (12:15)
[2021-09-24 12:23] LABS: BILIRUBIN,URINE NEG (NEG); CLARITY,URINE HAZY; COLOR,URINE YELLOW; GLUCOSE,URINE NEG (NEG)
[2021-09-24 12:24] LABS: BACTERIA,URINE FEW /HPF (0-FEW); NITRITE,URINE NEG (NEG); SQUAMOUS EPITHELIAL CELL,UR MANY /LPF; UROBILINOGEN,URINE 0.2 mg/dL (0.2 mg/dL)
--- NOTE | 2021-09-24 13:54 | RAD ---
CT STUDY OF THE ABDOMEN AND PELVIS WITH CONTRAST Clinical indications: Lower abdominal/pelvic pain. History of abscess of the left fallopian tube. TECHNIQUE: After IV infusion of 75 cc of Omnipaque 300, helical CT scanning of the abdomen and pelvis was performed. GI contrast was not administered. This may decrease the sensitivity to detect GI trac t pathology. PQRS COMPLIANCE STATEMENT One or more of the following individualized dose reduction techniques were utilized for this study: 1. Automated exposure control 2. Adjustment of the mA and/or kV according to patient size 3. Use of iterative reconstruction technique COMPARISON: August 10, 2021. FINDINGS: No hepatic mass. The spleen is not enlarged. Pancreas and gallbladder are normal and no ext rahepatic biliary ductal dilatation. No adrenal mass. Both kidneys are normal without hydronephrosis or hydroureter oriented tract stone. Urinary bladder wall is smooth. No uterine mass is seen. Bilater al follicular cysts of the ovaries are seen. Largest follicular cyst is seen on left side measuring 1 6 mm. Neither ovary was visualized on today's transabdominal exam of the pelvis. No focal aneurysmal dilatation of the abdominal aorta is seen. No enlarged abdominal or pelvic lymphadenopathy is seen. N o free fluid or free air or mesenteric edema is seen. The terminal ileum and appendix are normal. No obstructive bowel pattern is seen. No lung base consolidation is evident. No lytic process is seen. IMPRESSION: No acute abnormality of the abdomen or pelvis. Electronically signed by: Juan Maddox MD (09/24/2021 1:52 PM) [id number]
[2021-09-24] MEDS ORDERED: cefTRIAXone IM 500 MG VIAL. IM ONE (14:00)
[2021-09-24] MEDS ORDERED: DOXYCYCLINE HYCLATE 100 MG TABLET PO ONE (14:00)
[2021-09-24] MEDS ORDERED: DOXY100C3 PO (14:12)
--- NOTE | 2021-09-24 14:14 | PHYS DOC ---
Past History Past Medical History: Anxiety, Depression, Other Additional Past Medical Histor: claustrophobia, seasonal allergies, G/C PID abscess (ROHIT SANTOYO) Past Surgical History: Other Additional Past Surgical Histo: knee surgery (ROHIT SANTOYO) Smoking: Cigarettes Alcohol Use: Occasionally Drug Use: None (ROHIT SANTOYO) General Adult EDM: Chief Complaint: ABDOMINAL PAIN HPI: HPI: Patient is a 20 year old female with history of G/C PID who presents with suprapubic pain, vaginal irritation and dysuria. She rates her pain 6/10 at rest with intermittent cramping up to 8/10. Additionally, movement increases her pain to 8/10. Patient reports that she had and abscess on her fallopian tube and was treated about 1 month ago with antibiotics. She reports her pain today is similar. She denies increased urinary frequency and hematuria. Patient reports she has had 1 sexual partner in the past month, and that they have had unprotected sex. (ROHIT SANTOYO) Review of Systems: Review of Systems: 12 systems reviewed. ROS negative except as mentioned in HPI. (ROHIT SANTOYO) Current Medications: Current Meds: Current Medications Medications (Trade) Dose Ordered Sig/Kirill Start Time Stop Time Status Last Admin Dose Admin Iohexol (Omnipaque 300 Mg/ml) 75 ml 1X ONCE 09/24/21 12:15 09/24/21 12:16 DC 09/24/21 12:17 75 ML Morphine Sulfate (Morphine 4mg Syringe) 4 mg 1X ONCE 09/24/21 11:45 09/24/21 11:46 DC 09/24/21 12:04 4 MG Sodium Chloride 1,000 ml @ 1,000 mls/hr 1X ONCE 09/24/21 11:45 09/24/21 12:44 DC 09/24/21 12:03 1,000 MLS/HR (ROHIT SANTOYO) Allergies: Allergies: Allergies Coded Allergies Type Severity Reaction Last Updated Verified Penicillins Allergy Intermediate 09/08/21 Yes (ROHIT SANTOYO) Physical Exam: PE: Constitutional: Well developed, well nourished, no acute distress, non-toxic appearance. HENT: Normocephalic, atraumatic, bilateral external ears normal, oropharynx moist, no oral exudates, nose normal. Eyes: EOMI, conjunctiva normal, no discharge. Cardiovascular: Heart rate regular rhythm, no murmur. Lungs & Thorax: Bilateral breath sounds clear to auscultation. Abdomen: Suprapubic tenderness noted without guarding or rebound. Bowel sounds normal, soft, no masses, no pulsatile masses. Skin: Warm, dry, no erythema, no rash. Back: No step-offs, no tenderness, no CVA tenderness. Neurologic: Alert and oriented x4, motor function intact, sensory function intact, no focal deficits noted. Pelvic exam deferred by patient. (ROHIT SANTOYO) Current Patient Data: Labs: Laboratory Tests Test 09/24/21 11:39 Urine Collection Type Unknown Urine Color Yellow Urine Clarity Hazy Urine pH 5.0 Urine Specific [place] >=1.030 Urine Protein Neg (NEG-TRACE) Urine Glucose (UA) Neg mg/dL (NEG) Urine Ketones (Stick) Neg mg/dL (NEG) Urine Blood Trace (NEG) Urine Nitrite Neg (NEG) Urine Bilirubin Neg (NEG) Urine Urobilinogen Dipstick 0.2 mg/dL (0.2 mg/dL) Urine Leukocyte Esterase Small (NEG) Urine RBC 1-2 /HPF (0-2) Urine WBC 11-20 /HPF (0-4) Urine Squamous Epithelial Cells Many /LPF Urine Bacteria Few /HPF (0-FEW) Microbiology 09/24/21 Wet Prep - Final, Complete Vital Signs: Vital Signs Date Time Temp Pulse Resp B/P (MAP) Pulse Ox O2 Delivery O2 Flow Rate FiO2 09/24/21 12:07 78 16 113/58 (76) 99 Room Air 09/24/21 10:28 98.5 (ROHIT SANTOYO) Radiology/Procedures: Radiology/Procedures: PROCEDURE: CT ABD PELV W/ IV CONTRST ONLY CT STUDY OF THE ABDOMEN AND PELVIS WITH CONTRAST Clinical indications: Lower abdominal/pelvic pain. History of abscess of the left fallopian tube. TECHNIQUE: After IV infusion of 75 cc of Omnipaque 300, helical CT scanning of the abdomen and pelvis was performed. GI contrast was not administered. This may decrease the sensitivity to detect GI tract pathology. PQRS COMPLIANCE STATEMENT One or more of the following individualized dose reduction techniques were utilized for this study: 1. Automated exposure control 2. Adjustment of the mA and/or kV according to patient size 3. Use of iterative reconstruction technique COMPARISON: August 10, 2021. FINDINGS: No hepatic mass. The spleen is not enlarged. Pancreas and gallbladder are normal and no extrahepatic biliary ductal dilatation. No adrenal mass. Both kidneys are normal without hydronephrosis or hydroureter oriented tract stone. U rinary bladder wall is smooth. No uterine mass is seen. Bilateral follicular cysts of the ovaries are seen. Largest follicular cyst is seen on left side measuring 16 mm. Neither ovary was visualized on today's transabdominal exam of the pelvis. No focal aneurysmal dilatation of the abdominal aorta is seen. No enlarged abdominal or pelvic lymphadenopathy is seen. No free fluid or free air or mesenteric edema is seen. The terminal ileum and appendix are normal. No obstructive bowel pattern is seen. No lung base consolidation is evident. No lytic process is seen. IMPRESSION: No acute abnormality of the abdomen or pelvis. Electronically signed by: Juan Maddox MD (09/24/2021 1:52 PM) [id number] PROCEDURE: PELVIS COMPLETE US PELVIS COMPLETE History: Reason: suprapubic pain / Spl. Instructions: / History: Comparison: July 25, 2021 Technique: Grayscale and color Doppler imaging of the pelvis was performed using transabdominal technique. Patient denies transvaginal ultrasound. Findings: The uterus measures 7.2 x 4.5 x 3.7 cm. Uterus has an unremarkable appearance. The endometrial stripe measures 7 mm. Bilateral ovaries not identified due to positioning and overlying structures. IMPRESSION: 1. No acute pelvic pathology identified on transabdominal pelvic ultrasound. 2. Bilateral ovaries not identified. Electronically signed by: Andrez Barrientos DO (09/24/2021 12:08 PM) [id number] (ROHIT SANTOYO) Heart Score: C/O Chest Pain: No (ROHIT SANTOYO) Course & Med Decision Making: Course & Med Decision Making Pertinent Labs and Imaging studies reviewed. (See chart for details) Due to patient's recent history of tubo-ovarian abscess as well as having a new sexual partner, with whom she has had unprotected sex, patient will be evaluated for PID or possible urethritis. Patient will be treated empirically for GC infection. Patient refuses pelvic exam and transvaginal ultrasound. CT of abdomen and pelvis with IV contrast ordered instead. Follicular cyst noted on abdominal CT, however no abscess or rupture appreciated. Patient's urinalysis also shows signs of infection. Antibiotic treatment provided here and prescription should be sufficient. 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 Patient understands she will be informed of STI testing results. (ROHIT SANTOYO) Dragon Disclaimer: Dragon Disclaimer: This electronic medical record was generated, in whole or in part, using a voice recognition dictation system. (ROHIT SANTOYO) Attending Co-Sign The patient was seen and interviewed as well as examined at the bedside. The chart was reviewed. The case was discussed. Agree with the plan of care. (SAADIA LAGUNAS DO) Departure Departure: Impression: Primary Impression: Vaginitis Qualified Codes: N76.0 - Acute vaginitis Additional Impression: History of acute PID Disposition: HOME / SELF CARE / HOMELESS Condition: STABLE Referrals: PCP,NO (PCP) Patient Instructions: Bacterial Vaginosis, Cdke-zo-Mwlw Scripts Doxycycline Hyclate (DOXYCYCLINE HYCLATE) 100 Mg Capsule 1 CAP PO BID for vaginosis, #13 CAP Prov: ROHIT SANTOYO 09/24/21 ROHIT SANTOYO Sep 24, 2021 14:14 SAADIA LAGUNAS DO Sep 25, 2021 15:42
[2021-09-24 14:22] VITALS: BP 113/60
== END 2021-09-24 14:36 | disposition home or self-care (01) ==
LOC: ER 10:17
DX: N76.0 Acute vaginitis (principal); F17.210 Nicotine dependence, cigarettes, uncomplicated; Z88.0 Allergy status to penicillin
CPT/HCPCS: 36415; 74177; 76856; 81001; 87086; 87491; 87591; 96360; 96372; 99285; J0696; J2270; J7030; Q0111; Q9967; 87077

== ENCOUNTER 2022-02-02 13:29 | Emergency (ER) | payer MEDICAID ==
[~2022-02-02] VITALS: Ht 154.9 cm; Wt 67.4 kg
[2022-02-02 13:29] VITALS: BP 110/45
[~2022-02-02 13:29] MED LIST changes: +DOXY100C3 PO
[2022-02-02] MEDS ORDERED: BUTA1TAB23 PO (13:49)
[2022-02-02] MEDS ORDERED: ORPH-16 PO (13:49)
--- NOTE | 2022-02-02 13:52 | PHYS DOC ---
Past History Past Medical History: Anxiety, Depression, Migraines, UTI, Other Additional Past Medical Histor: claustrophobia, seasonal allergies, G/C PID abscess Past Surgical History: Other Additional Past Surgical Histo: knee surgery Smoking: Cigarettes Alcohol Use: Occasionally Drug Use: None General Adult EDM: Chief Complaint: HEADACHE HPI: HPI: 21-year-old female presents with headache and neck pain which suddenly started today when patient had tipped her head backwards in shower to wash shampoo out of her hair. Patient reports pain significantly worsened. Reports associated photophobia. Denies trauma. Denies use of blood thinners. Denies nausea or vomiting. Review of Systems: Review of Systems: Constitutional: Denies fever or chills Eyes: Denies redness or eye pain HENT: Denies nasal congestion or sore throat Respiratory: Denies cough or shortness of breath Cardiovascular: Denies chest pain or palpitations GI: Denies abdominal pain, nausea, or vomiting : Denies dysuria or hematuria Musculoskeletal: Denies back pain; reports neck pain Integument: Denies rash or skin lesions Neurologic: Reports headache; denies focal weakness or sensory changes Complete systems were reviewed and found to be within normal limits, except as documented in this note. Allergies: Allergies: Allergies Coded Allergies Type Severity Reaction Last Updated Verified Penicillins Allergy Intermediate 09/08/21 Yes Physical Exam: PE: Constitutional: Well developed, well nourished, histrionic HENT: Normocephalic, atraumatic, TMs clear bilaterally, nares clear Eyes: PERRL, photophobia, conjunctiva normal, no discharge Neck: Normal range of motion, no midline tenderness, paraspinal tenderness noted, supple Lungs & Thorax: No respiratory distress, equal chest rise and fall Skin: Warm, dry, no erythema, no rash Extremities: No tenderness, ROM intact, no edema Neurologic: Alert and oriented X 3, normal motor function, normal sensory function, no focal deficits noted Psychologic: Affect anxious, judgment normal EKG: EKG: [] Radiology/Procedures: Radiology/Procedures: [] Heart Score: C/O Chest Pain: N/A Course & Med Decision Making: Course & Med Decision Making Patient presents with report of headache and neck pain which suddenly started. Patient is afebrile. Patient does appear histrionic. No history of trauma. Symptomatic treatment provided. Patient stable for discharge with outpatient follow-up with PCP/neurologist. Neurology referral provided. Discussed findings and plan with patient and family, who acknowledge understanding and agreement. Karen Disclaimer: Karen Disclaimer: This electronic medical record was generated, in whole or in part, using a voice recognition dictation system. Departure Departure: Impression: Primary Impression: Headache Qualified Codes: R51.9 - Headache, unspecified Disposition: HOME / SELF CARE / HOMELESS Condition: STABLE Referrals: PCP,UNKNOWN (PCP) JONH JORDAN MD Patient Instructions: Headache, FAQs, Migraine Headache, Nmvw-oo-Mqac Additional Instructions: Place yourself in a dark quiet place and try to sleep. May also use [id number] ibuprofen as needed for pain. Scripts Butalb/Acetaminophen/Caffeine (EUTNLF-HCIBEIMS-WRRM 50-325-40) 1 Each Tablet 1 EACH PO Q6HRS PRN for HEADACHE, #14 TAB Prov: ANASTACIA MEZA DO 02/02/22 Orphenadrine Citrate (ORPHENADRINE CITRATE) 100 Mg Tablet.er 1 TAB PO BID PRN for MUSCLE PAIN, #14 TAB 0 Refills Prov: ANASTACIA MEZA DO 02/02/22 ANASTACIA MEZA DO Feb 02, 2022 13:52
[2022-02-02] MEDS ORDERED: DEXAMETHASONE 4 MG TABLET PO ONE (14:00)
[2022-02-02] MEDS ORDERED: BUTALB/APAP/CAFEIN 50/325/40MG TABLET. PO ONE (14:00)
[2022-02-02] MEDS ORDERED: ORPHENADRINE CITRATE 60 MG/2 ML VIAL. IM ONE (14:00)
[2022-02-02] MEDS ORDERED: KETOROLAC 30 MG/ML VIAL. IM ONE (14:00)
== END 2022-02-02 14:30 | disposition home or self-care (01) ==
LOC: ER 13:29
DX: G43.909 Migraine, unspecified, not intractable, without status migrainosus (principal); M54.2 Cervicalgia; F17.210 Nicotine dependence, cigarettes, uncomplicated; Z87.440 Personal history of urinary (tract) infections; Z88.0 Allergy status to penicillin
CPT/HCPCS: 96372; 99284; J1885; J2360; J8540